=== PATIENT | male | born 1990 | race Caucasian/White ===

== ENCOUNTER 2023-10-04 23:26 | Emergency (ER) | payer OTHER, MEDICAID, SELFPAY ==
[2023-10-04 23:31] VITALS: BP 138/79; PULSE 91; RESP 18; TEMP 38.9; O2SAT 92; BMI 24.4
[2023-10-04] MEDS: ACETAMINOPHEN 325 MG TABLET 975 MG PO (23:43)
[2023-10-05 00:37] LABS: Influenza A - CEPHEID Flu A NEGATIVE (NEGATIVE); Influenza B - CEPHEID Flu B NEGATIVE (NEGATIVE); Respiratory Syncytial Virus Negative (Negative)
[2023-10-05 00:43] LABS: COVID-19 CEPHEID 4-PLEX PCR Negative (Negative)
[2023-10-05 00:44] VITALS: BP 123/62; PULSE 87; RESP 19; TEMP 38.1; O2SAT 94
[2023-10-05 00:46] VITALS: TEMP 38.1
--- NOTE | 2023-10-05 00:59 | ED_ITS ---
HPI - URI/Sore Throat General Chief Complaint: Upper Respiratory Symptoms Stated Complaint: fever, headache, clumsy, back of legs aching Time Seen by Provider: 10/04/23 23:46 Source: patient Mode of arrival: Ambulatory History of Present Illness HPI Narrative: Patient is a 33-year-old male who presents today with fever headache. He was seen [facility] few hours prior in fact there is a triage from 05/25. Has a history of asthma he was complaining of flu-like symptoms that began earlier in the day. Patient had blood work he refused a nasal swab he had a urinalysis he had a lactate of 0.8 and at 10:30 p.m. he informed the staff that he wanted to leave. He apparently came here. He is now calm he agreed to a nasal swab. He reports he has headache and fever mild sore throat it all started at 7:00 p.m. today. He denies any significant shortness breath or chest pain. Initial Vitals at [facility] he had a temperature of 39.4? heart rate of 110 respiratory rate 60 blood pressure 146/87 90% on room air Related Data Home Medications Medication Instructions Recorded Confirmed Suboxone 10/04/23 Allergies Allergy/AdvReac Type Severity Reaction Status Date / Time No Known Drug Allergies Allergy Verified 10/04/23 23:36 Patient History Social History Smoking Status: Never smoker Smoking Status: Never smoker Substance Use Type: marijuana Exam Initial Vital Signs Initial Vital Signs: Vital Signs Temperature 102.1 F H 10/04/23 23:31 Pulse Rate 91 H 10/04/23 23:31 Respiratory Rate 18 10/04/23 23:31 Blood Pressure 138/79 10/04/23 23:31 Pulse Oximetry 92 10/04/23 23:31 Oxygen Delivery Method Room Air 10/04/23 23:31 GENERAL: [Well-appearing, well-nourished] and in [no acute] distress. HEENT: Head atraumatic,EOMI, pupils reactive, face symmetric, [moist] mucous membranes CARDIOVASCULAR: Regular rate and rhythm without murmurs, rubs or gallops. RESPIRATORY: Breath sounds equal bilaterally, no wheezes rales or rhonchi. Clear breath sounds no conversational dyspnea ABDOMEN: Soft, nontender. Normoactive bowel sounds all 4 quadrants. No guarding or rebound. EXTREMITIES: Normal range of motion, no clubbing or edema. Neurovascularly intact NEUROLOGICAL: Alert and oriented x4.Normal gait and speech. SKIN: Warm, dry, no laceration, no petechiae, no rashes or lesions. Course Orders Ordered: ED Orders 10/04/23 23:51 Covid-19 + FLU A/B + RSV - PCR Stat Discontinued Medications Acetaminophen (Acetaminophen 325 Mg Tablet) 975 mg PO NOW ONE Stop: 10/04/23 23:40 Last Admin: 10/04/23 23:43 Dose: 975 mg Documented By: LEANDRA Vital Signs Vital signs: Vital Signs - 8 hr 10/04/23 23:31 10/05/23 00:44 10/05/23 00:46 Temperature 102.1 F H 100.6 F H 100.6 F H Pulse Rate 91 H 87 Respiratory Rate 18 19 Blood Pressure 138/79 123/62 Pulse Oximetry 92 94 Oxygen Delivery Method Room Air Room Air MDM - URI/Sore Throat Lab Data Labs: Lab Results 10/04/23 Range/Units 23:51 SARS-CoV-2 (PCR) Negative (Negative) Influenza A (RT-PCR) Flu a negative (NEGATIVE) Influenza B (RT-PCR) Flu b negative (NEGATIVE) RSV (PCR) Negative (Negative) MDM Narrative Medical decision making narrative: Patient 33-year-old male presents today with upper respiratory like symptoms. He is febrile here in the ED. He had blood work chest x-ray at [facility] just a few hours ago. I received records. Patient got angry and left and refused a nasal swab. Here in our ED he agreed to the nasal swab unfortunately it is if. His lung sounds are clear he has no signs of respiratory distress. He is not tachycardic. I suspect he has a viral illness. It is possible he has COVID and just tested too early. He has cooperative here. At this time no need for any further workup. He has not hypotensive or tachycardic here in the ED. Pulse ox is 95%. He has not wheezing and does not require any sort of albuterol. At this time supportive care only Discharge Plan Departure Patient Disposition: Home Clinical Impression: Upper respiratory infection Instructions: DI for Viral Upper Respiratory Infection -- Adult Activity Restrictions/Additional Instructions: *You have been diagnosed with upper respiratory infection *What to do: is time stay hydrated treat fever as needed you were given Tylenol here in the ED. COVID influenza RSV test negative today however maybe too early to test positive recommend retesting COVID in about 2-3days *Continue to take medications as directed Tylenol 650 mg every 4-6 hours if needed for [id number] pain Motrin 600 mg every 6 hours if needed for [id number] pain *Follow up with your primary care provider in 2-3 days or call [phone] *Return to ER if you should have increasing shortness breath, inability to tolerate fluids [or] any new, worsening or concerning symptoms Prescriptions: No Action Suboxone Referrals: Aysha Salcido MD [Primary Care Provider] - Stand Alone Forms: Patient Portal/API
== END 2023-10-05 01:11 | disposition home or self-care (01) ==
PROVIDERS: Emergency Provider Emergency Medicine; PCP Specialist
DX: J06.9 Acute upper respiratory infection, unspecified (principal); Z20.822 Contact with and (suspected) exposure to COVID-19
CPT/HCPCS: 0241U; 99282; 99283